=== PATIENT | male | born 1975 | race Caucasian/White ===

== ENCOUNTER 2021-03-20 11:54 | Emergency (ER) | payer BC, OTHER ==
[2021-03-20] MEDS ORDERED: TETRACAINE 0.5% OPHTH SOLN 2 ML BOTTLE OS ONE (12:15)
[2021-03-20] MEDS ORDERED: FLUORESCEIN NA 1 EA STRIP OS ONE (12:15)
[2021-03-20] MEDS ORDERED: FLUORESCEIN NA 1 EA STRIP ONE (12:18)
[2021-03-20] MEDS ORDERED: TETRACAINE 0.5% OPHTH SOLN 2 ML BOTTLE ONE (12:18)
[2021-03-20 12:24] VITALS: BP 125/71; PULSE 64; TEMP 97.3; BMI 24.0
== END 2021-03-20 12:34 | disposition home or self-care (01) ==
LOC: FER 11:54
DX: S05.02XA Injury of conjunctiva and corneal abrasion without foreign body, left eye, initial encounter (principal); W22.8XXA Striking against or struck by other objects, initial encounter; Y92.9 Unspecified place or not applicable
CPT/HCPCS: 99283-25